=== PATIENT | female | born 1980 | race Caucasian/White ===

== ENCOUNTER 2017-03-23 22:45 | Emergency (ER) | payer BC ==
[2017-03-23 23:11] LABS: Hematocrit 36.3 % (37.0-47.0); Hemoglobin 11.9 gm/dL (12.5-16.0); Mean Cell Volume 87.9 fl (78-100); Mean Corpuscular Hemoglobin 28.8 pg (27-31); Mean Corpuscular Hgb Conc 32.8 g/dl (32-36); Mean Platelet Volume 10.5 fl (6.0-9.5); Neutrophil # 7.2 K/mm3 (1.3-6.0); Neutrophil % 67.1 % (42-75.0); Platelet Count 336 K/mm3 (150-450); Red Blood Count 4.13 M/mm3 (4.2-5.4); Red Cell Distribution Width 12.5 % (11.5-14.0); White Blood Count 10.8 K/mm3 (4.0-10.5)
[2017-03-23 23:27] LABS: Urine Bilirubin Negative (NEGATIVE); Urine Blood Negative /ul (NEGATIVE); Urine Ketone Negative (NEGATIVE); Urine Nitrite Negative (NEGATIVE); Urine Protein Negative (NEGATIVE); Urine Specific Gravity 1.015 SP.GR. (1.005-1.010); Urine Urobilinogen Normal (NORMAL)
--- NOTE | 2017-03-23 23:28 | ERNOTE ---
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 She states she was just sitting on the couch watching television when the pain started. She is staying at her parent's house for recovery because she has a rambunctious 2 year old at home, and it was felt that she would do better at her parent's house initially until strong enough to be around her 2 year old. She is feeling better here, and feels that she over reacted. Timing: resolved prior to arrival Severity/Quality: moderate, pressure Location: substernal Chest Pain Radiation: no radiation Activities at Onset: rest Modifying Factors - Improves: Present: nothing Modifying Factors - Worsens: Present: nothing Nitro Today/Relief: no nitro taken today Aspirin Treatment Today: no aspirin today Review of Systems - Review of Systems Constitutional: Present: recent illness - brain surgery. Absent: fever, chills , diaphoresis EYE: Present: no symptoms reported ENT: Present: no symptoms reported Respiratory: Present: shortness of breath. Absent: cough Cardiology: Present: chest pain Gastrointestinal/Abdominal: Absent: nausea, vomiting, diarrhea Genitourinary: Present: no symptoms reported Musculoskeletal: Present: neck pain - secondary to surgery Skin: Present: no symptoms reported Neurological: Present: no symptoms reported Endocrine: Present: no symptoms reported - Patient's Past Medical History Patient History - Medical: Other - Chiari malformation with syrinx Patient History - Cardiac/Respiratory: No pertinent hx Patient History - Cancer: No Hx of Cancer Patient History - Surgical Procedures: , Other - Brain surgery for Chiari malformation with syrinx Patient History - Other: None - Family History Mother Family History - Medical: No pertinent hx Family History - Cardiac/Respiratory: No pertinent hx Father Family History - Medical: No pertinent hx Family History - Cardiac/Respiratory: No pertinent hx Grandfather-Maternal Family History - Medical: No pertinent hx Family History - Cardiac/Respiratory: No pertinent hx Maternal Aunt Family History - Medical: No pertinent hx Family History - Cardiac/Respiratory: No pertinent hx - Social History Abuse History: No History of abuse Psych History: No pertinent hx Smoking Status: Never smoker - Immunizations Immunizations Up to Date: Yes Physical Exam - Physical Exam General Appearance: Present: wd/wn, alert, mild distress, thin Head Exam: Present: other - surgical wound posteriorly Eye Exam: Normal inspection: bilateral, PERRL: bilateral, EOMI: bilateral Ears, Nose, Throat: Present: normal ENT inspection Neck: Present: other - surgical wound posteriorly Respiratory: Present: no respiratory distress, normal breath sounds, no accessory muscle use Cardiovascular/Chest: Present: regular rate, rhythm, no murmur Gastrointestinal/Abdominal: Present: normal bowel sounds, nontender, nondistended, soft Back Exam: Present: decreased range of motion - upper back secondary to surgery for Chiari malformation Extremity Exam: Present: normal inspection, non-tender, normal range of motion Neurological Exam: Present: alert, oriented, normal mood/affect, no motor/ sensory deficits Skin Exam: Present: normal color, warm/dry ED Progress - Results and Orders Patient's Lab Results:: I have reviewed the patient's lab results. Results and Orders: WBC mildly elevated, not unusual for 1 week post brain surgery, mildly anemic. Rest of labs are in normal range. 01:40. Second Troponin is negative, will discharge the patient home. - Vital Signs Patient's Vital Signs:: I have reviewed the patient's vital signs. Vital Signs: Vital Signs 03/23/17 22:54 Temperature 37.6 C H Pulse Rate 85 Respiratory 15 Rate Blood Pressure 109/73 - EKG EKG: NSR, NE - short interval, no ST T wave changes EKG read: Interp. by me - X-Ray X-Ray #1 X-Ray: chest Interpretation: Interp. by me X-ray Comments: No cardiomegaly, no infiltrates noted, no bony abnormalities. Plan - Plan Plan: Patient to follow up with her primary care provider and her neurologist at [facility] in the next week. Departure Clinical Impression: Chest pain of uncertain etiology - Departure Disposition: Home self-care Condition: Good Instructions: Indigestion, [id number], Muscle Strain, [id number], Nonspecific Chest Pain, [id number], Heartburn, [id number] Referrals: Nicolette Mcginnis FNP [Primary Care Provider] - (3-5 days. Also call and talk to Neurology at [facility] to discuss the event. Your troponin was negative X 2, no heart problems are expected, but your primary care provider or Neurology may wish for you to have further work up with Cardiology.)
[2017-03-23 23:32] LABS: ALT 34 U/L (19-67); AST 13 U/L (0-48); Albumin * 3.3 gm/dl (3.4-5.0); Alkaline Phosphatase * 64 U/L (50-170); Anion Gap 10.7 mmol/L (6.8-13.8); BUN/Creatinine Ratio 23.4 (9.0-21.6); Bilirubin, Total 0.2 mg/dL (0.0-1.1); Blood Urea Nitrogen 15 mg/dL (3-23); Ca. Corrected For Albumin 8.6 mg/dL (8.4-10.2); Calcium * 8.4 mg/dL (7.9-10.9); Carbon Dioxide 27.3 mmol/L (24-32.6); Chloride 103 mmol/L (97-106); Glucose * 123 mg/dL (70-110); Sodium 137 mmol/L (132-142); Total Protein 6.5 gm/dL (6.2-8.2); Troponin I Less than 0.017 ng/ml (0.00-0.10)
[2017-03-23 23:39] LABS: Urine Appearance Clear; Urine Color Yellow
[2017-03-23 23:40] LABS: Cocaine Ur Negative (NEGATIVE); Urine Bacteria TRACE; Urine Barbiturate Negative (NEGATIVE); Urine Benzodiazepines Negative (NEGATIVE); Urine Opiates Negative (NEGATIVE); Urine PCP Negative (NEGATIVE); Urine RBC None Seen /hpf (0-5); Urine THC Negative (NEGATIVE); Urine WBC None Seen /hpf (0-5)
[2017-03-24 01:49] VITALS: BP 114/62
== END 2017-03-24 01:47 | disposition home or self-care (01) ==
LOC: ER 22:45
DX: R07.9 Chest pain, unspecified (principal); Z98.890 Other specified postprocedural states